=== PATIENT | male | born 1980 | race Two or more races ===

== ENCOUNTER 2022-11-20 08:15 | Emergency (ER) | payer BC ==
[~2022-11-20] VITALS: Ht 175.3 cm; Wt 99.8 kg
[2022-11-20] MEDS ORDERED: HYDROXYZIN10 MG/5 ML PO (08:28)
== END 2022-11-20 14:45 | disposition home or self-care (01) ==
LOC: ER 08:15
DX: R53.81 Other malaise (principal); F41.0 Panic disorder [episodic paroxysmal anxiety]; Z20.822 Contact with and (suspected) exposure to COVID-19